=== PATIENT | female | born 1985 | race Caucasian/White ===

== ENCOUNTER 2019-09-19 06:08 | Day surgery (SDC) | payer MEDICAID ==
[~2019-09-19] VITALS: Ht 142.2 cm; Wt 103.3 kg
[2019-09-19 06:43] VITALS: BP 107/46; TEMP 97.9
[2019-09-19] MEDS ORDERED: PEPCID 20MG TAB20 MG PO (07:00)
[2019-09-19] MEDS ORDERED: RISPERDAL 0.5M0.5 MG PO (07:01)
[2019-09-19] MEDS ORDERED: CELEXA10 MG PO (07:02)
[2019-09-19] MEDS ORDERED: SYNTHROID 0.0.025 MG PO (07:03)
[2019-09-19] MEDS ORDERED: FLONASE NASAL S16 GM NS (07:04)
[2019-09-19] MEDS ORDERED: ZYRTEC 10MG10 MG PO (07:05)
[2019-09-19] MEDS ORDERED: CRANBERRY FRUI425 MG PO (07:06)
[2019-09-19 09:35] VITALS: BP 108/60; PULSE 80; TEMP 97.8
--- NOTE | 2019-09-19 09:35 | NUR ---
TO RM 6 PER CART FROM PACU. SLEEPING AND AROUSES TO TACTILE STIMULATION. FALLS BACK TO SLEEP. NO SIGNS OF PAIN OR DISCOMFORT. PER DR HORTON MAY BE DISCHRGED WHEN CRITERIA MET.
[2019-09-19 09:45] VITALS: BP 110/55; PULSE 76
--- NOTE | 2019-09-19 09:45 | NUR ---
PATIENT SLIGHTLY MORE AWAKE AND PULLING OFF O2 SAT MONITOR. DISCONTINUED IV AND INT- CATHETER INTACT
[2019-09-19 09:53] VITALS: BP 108/60; PULSE 80; TEMP 98.4
--- NOTE | 2019-09-19 10:00 | NUR ---
MORE AWAKE AND SAYING A FEW WORDS. ELEVATED HOB COUGHING OCCASIONAL, COUGHING OUT SALIVA
--- NOTE | 2019-09-19 10:15 | NUR ---
ATE 100% MOOK PUDDING.
--- NOTE | 2019-09-19 10:30 | NUR ---
DISCHARGE INSTRUCTIONS GIVEN TO GAS ENGINE MECHANIC FROM [facility]
--- NOTE | 2019-09-19 10:35 | NUR ---
DR HORTON CALLED TO LET HIM KNOW PATIENT BEING DISCHARGED
--- NOTE | 2019-09-19 10:45 | NUR ---
DISHCARGED PER WC BY NURSING STAFF TO LOCKS TENDER FROM [facility]
== END 2019-09-19 10:50 | disposition home or self-care (01) ==
LOC: SDCO 06:08
DX: K02.9 Dental caries, unspecified (principal); F79 Unspecified intellectual disabilities; J45.909 Unspecified asthma, uncomplicated; K21.9 Gastro-esophageal reflux disease without esophagitis; E03.9 Hypothyroidism, unspecified; E66.9 Obesity, unspecified
CPT/HCPCS: J0690; J1100; J2405; J2704; J3010

== ENCOUNTER 2023-04-17 11:40 | Outpatient (CLI) | payer MEDICAID, MEDICARE ==
[~2023-04-17] VITALS: Ht 142.2 cm; Wt 101.8 kg
[~2023-04-17 11:40] MED LIST: CELEXA10 MG PO; CRANBERRY FRUI425 MG PO; FLONASE NASAL S16 GM NS; PEPCID 20MG TAB20 MG PO; RISPERDAL 0.5M0.5 MG PO; SYNTHROID 0.0.025 MG PO; ZYRTEC 10MG10 MG PO
[2023-04-17] MEDS ORDERED: MAG-OX 400400 MG/TAB PO (12:47)
--- NOTE | 2023-04-17 15:00 | NUR ---
Pt discharged at approx 1300. She was assisted to the main lobby via wheelchair by her caregiver. marta was not performed because pt would not cooperate with nurse, doctor, or caregiver. Pt refused to sit on bed for MARTA procedure and got increasingly anxious and combative the more she was coaxed into sitting down. Ni IV was started. Pt did lie on bed once she was given water and jell-o. An echocardiogram was performed in lieu of MARTA and results will be shared with associate broker.
== END 2023-04-17 13:00 | disposition home or self-care (01) ==
LOC: COL.RAD 11:40
DX: I42.9 Cardiomyopathy, unspecified (principal); I51.7 Cardiomegaly

== ENCOUNTER 2024-06-19 14:00 | Emergency (ER) | payer MEDICARE ==
[~2024-06-19] VITALS: Ht 121.9 cm; Wt 93.2 kg
[~2024-06-19 14:00] MED LIST changes: +MAG-OX 400400 MG/TAB PO
[2024-06-19 14:07] VITALS: TEMP 98.2
[2024-06-19 18:50] VITALS: BP 112/75; PULSE 66
== END 2024-06-19 18:30 | disposition home or self-care (01) ==
LOC: COL.ER 14:00
DX: S06.0X0A Concussion without loss of consciousness, initial encounter (principal); S42.031A Displaced fracture of lateral end of right clavicle, initial encounter for closed fracture; Z79.01 Long term (current) use of anticoagulants; V74.4XXA Person boarding or alighting from bus injured in collision with heavy transport vehicle or bus, initial encounter; W22.8XXA Striking against or struck by other objects, initial encounter